=== PATIENT | male | born 1985 | race Caucasian/White ===

== ENCOUNTER 2016-09-17 12:20 | Emergency (ER) | payer MEDICAID ==
[~2016-09-17] VITALS: Ht 185.4 cm; Wt 79.4 kg
[~2016-09-17 12:20] MED LIST: NORCO 325 MG-51 TAB PO; PERCOCET 5/3251 EACH PO
[2016-09-17] MEDS ORDERED: KEFLEX 500MG.500 MG PO (13:07)
--- NOTE | 2016-09-17 13:08 | Urgent Treatment Center Report ---
History of Present Issue Date/Time Seen by Provider 09/17/16 1242 Visit Reason Pt arrived:Walked Presenting Problem:rt ear pressure, large swollen area on dorsal aspect of left hand. notice today. clear drainage noted Location if Accident: Onset of symptoms date/time:/ or onset unknown for:MEDICAL HX UNKNOWN Have you (or family members/close friends) recently traveled outside the [place]? N If Yes, where/when: Have you had exposure to infectious disease within the past month? TB? Other? 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 State that he has a small area in the center of the area that looks like he may have been bitten by something. State that he also is having some pressure in his right ear for several days ALLERGIES Coded Allergies: Sulfa (Sulfonamide Antibiotics) (11/04/15) Home Medications Reported Medications No Known Home Medications History Medical History General CAD? No Angina: No AR: No Hypertension? No Hyperlipidemia? No CHF? No DVT? No PE? No COPD? No Asthma? No Anemia? No GERD? No Gastric ulcers? No GI Bleed? No Hernia? No Thyroid Problems? No Hypothyroidism? No CVA? No Seizures? No Diabetes? No Renal Insuffiency? No UTI? No Stones? No BPH? No GB Disease: No Nephritic Syndrome? No Asplenia? No Hepatitis? No Sickle Cell Disease? No Arthritis? No Migraines? No Cataracts? No Glaucoma? No MRSA? No HIV? No TB? No Anxiety? No Depression? No Cancer? No More? No Immunization HX DT/Tetanus 1-4 Years Ago Surgical Hx Previous Surgery?N Social History Smoking Hx Smoker: Current Every Day Smoker Tobacco: Yes Type Cigarettes Packs/day < 1 Pack Alcohol Alcohol: Yes Review of Systems All Other Systems Reviewed and Negative Skin other Comment round red raised area on top of left hand that is slightly swollen and draining with a small area in the center that looks like a bite Physical Exam Vital Signs Vital Signs Date Time Temp Pulse Resp B/P Pulse O2 O2 Flow FiO2 Ox Delivery Rate 09/17 1229 98.1 75 20 143/100 99 General Appearance normal appearance, WD/WN, no apparent distress Respiratory Status Yes: trachea midline, chest symmetrical, non tender chest. No: respiratory distress. 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 Medical Decision Making LABS/Meds/Orders Pt receiving controlled substance in ED? No Departure Departure Time of Disposition 1248 Disposition DC Home or Self Care(routine) Clinical Impression Primary Impression: Skin infection Condition STABLE Referrals Clayton Pimentel (Family): 3 Days-Call Office if no improvement Patient Instructions DI for Insect Bites and Stings Additional Instructions keep area clean and dry Make sure to wear gloves when handling hay and look for insects Follow up with family doctor if no improvement in symptoms Watch area for further swelling and spreading watch area that was circled and watch for swelling beyond the circled area, streaks, and warmth or fever any signs of furthering infection REturn if needed Follow up with family doctor Discharge Counseling Counseled pt/family regarding diagnosis, medications/RX, home care, follow up needs Prescriptions Current Visit Scripts CEPHALEXIN (Keflex 500MG Capsule) 500 MG PO QID #20 CAP at 1308
[2016-09-17 13:10] VITALS: BP 143/100
--- OUTSIDE RECORDS SUMMARY | 2016-09-17 22:10 | External Medical Summary Rpt ---
Author Author , EVELYNE STUBBS Address Unknown Phone [email or web address] Immunization Name Date Rout CVX Reac Dose Comm Prov Is Faci e tion ent ider Refu lity Give sed n Hep 04-0 8 999 Hist H149 No H149 B, 2-20 oric ped/ al adol Info rmat ion - Sour ce Unsp ecif ied Td 04-0 9 999 Hist H149 No H149 (kade 2-20 oric lt), 01 al Info adso rmat rbed ion - Sour ce Unsp ecif ied Hep 06-1 8 999 Hist H149 No H149 B, 3- oric ped/ 97 al adol Info rmat ion - Sour ce Unsp ecif ied MMR 02-1 3 999 Hist H149 No H149 - oric 97 al Info rmat ion - Sour ce Unsp ecif ied Hep 02-1 8 999 Hist H149 No H149 B, - oric ped/ 97 al adol Info rmat ion - Sour ce Unsp ecif ied
--- OUTSIDE RECORDS SUMMARY | 2016-09-17 22:10 | External Medical Summary Rpt ---
Author Author [employer] Organization [employer] Address Unknown Phone Unavailable Purpose Continuity of Care Document - through 2016
--- OUTSIDE RECORDS SUMMARY | 2016-09-17 22:10 | External Medical Summary Rpt ---
Author Author , RAUL STUBBS Address Unknown Phone .[employer] Purpose Continuity of Care Document - through 2016
--- OUTSIDE RECORDS SUMMARY | 2016-09-17 22:10 | External Medical Summary Rpt ---
Author Author , RAUL STUBBS Address Unknown Phone [email or web address] Purpose Continuity of Care Document - through 2016
--- OUTSIDE RECORDS SUMMARY | 2016-09-17 22:10 | External Medical Summary Rpt ---
Author Author EVELYNE Cavazos, [employer] Address Unknown Phone Unavailable
--- OUTSIDE RECORDS SUMMARY | 2016-09-17 22:10 | External Medical Summary Rpt ---
Author Author , EVELYNE STUBBS Address Unknown Phone [email or web address] Immunization Name Date Rout CVX Reac Dose [...]
== END 2016-09-17 13:11 | disposition home or self-care (01) ==
LOC: UTC 12:20
DX: L02.512 Cutaneous abscess of left hand (principal)

== ENCOUNTER → 2016-10-12 | Outpatient (CLI) | payer MEDICAID ==
[~2016-10-12] MED LIST changes: +KEFLEX 500MG.500 MG PO
--- NOTE | 2016-10-12 10:20 | RADIOLOGY REPORT PS360 ---
ORBIT HISTORY: RULE OUT METAL FOREIGN BODY FOR MRI Patient Age: 31 years: Male Ordering Physician: CATRACHO HIGGINS MD TECHNIQUE: Bang' view patient looking up and looking down COMPARISON :None FINDINGS These plain films show no discrete radiopaque foreign body in either orbit . Minimal artifact on the images changes from one image to another. Patient & Orbits clear for MRI. The maxillary sinuses appear clear as do the frontal sinuses. Mastoid air cells unremarkable. Facial bones intact. IMPRESSION: No evidence of radiopaque foreign body in either orbit. Patient clear for MRI Paranasal sinuses visualized appear clear
--- NOTE | 2016-10-15 08:14 | RADIOLOGY REPORT PS360 ---
[facility] left hand HISTORY: SPIDER BITE WOUND Patient Age: 31 years: Male Ordering Physician: CATRACHO HIGGINS MD TECHNIQUE: Multiplanar multisequence imaging 1.5 the MRI. COMPARISON :3 views left hand 10/03/2016 FINDINGS Superficial edema /mainly subcutaneous edema. Modest layer of soft tissue fluid/.inflammation is seen along the dorsal aspect of the hand ,,.This abnormal edema seems limited to the more superficial & subcutaneous region.- It does not extend significantly into the deep spaces of the hand. & There is no osseous involvement.. This relatively modest layer of fluid signal subcutaneous regionl It spans up to 4 cm transverse 7.5 cm length X 2-2.5 mm maximum AP. This is most evident in focal fluid collection, with mild post contrast enhancement, is seen overlying/flanking the distal head third metacarpal & knuckle/MCP joint region. This enhancement and mild edema spreading into the soft tissues overlying the fourth, and less evident second MCP joint.. Some scant Edema an associated enhancement extending into the proximal third finger dorsally. & possibly some scant fluid extending dorsal soft tissues at the base of the fourth finger as well.. Underlying osseous structures appear intact here as well. The tendons appear intact. IMPRESSION: Inflammatory fluidis seen throughout the superficial dorsal soft tissues hand. This information spans up to 7.5 cm in length x 4 cm transverse.. Mild enhancement is seen in the same region general region but most evident evident overlying and flanking the head of the Third metacarpal, & less evident spreading to overlying the head of fourth & second metacarpal Is specifically noted moderate enhancement most evident in these subcutaneous tissues overlying the third and fourth metatarsal head region... These above features likely reflects the reactive changes from the reported spider bite.. Scant edema may also extend towards the dorsal aspect of proximal third & fourth finger. The inflammation seems limited to the more superficial soft tissues and does not involve the deep hand structures. No Osseous involvement...
== END ==
LOC: RAD 08:23
DX: H05.53 Retained (old) foreign body following penetrating wound of bilateral orbits (principal); T63.301A Toxic effect of unspecified spider venom, accidental (unintentional), initial encounter
CPT/HCPCS: A9576

== ENCOUNTER → 2016-11-29 | Outpatient (CLI) | payer MEDICAID ==
--- NOTE | 2016-11-29 16:43 | RADIOLOGY REPORT PS360 ---
PROCEDURE: 2-D M-mode and color Doppler study INDICATIONS FOR THE TEST: Chest pain+ COPD Heart Murmur Tobacco Smoking+ Palpitations+ Fatigue+ Syncope Edema Hypertension Diabetes Mellitus Rheumatic Fever SOB+ARREDONDO+Obesity Hyperlipidemia Family History HD Additional History PATIENT INFORMATION HEIGHT: 73 WEIGHT: 170 GENDER: Male B/P: 143/103 2-D/M-MODE INTERPRETATION: 2-D MEASUREMENTS OBSERVED VALUES IN CMS Right Ventricular Dimension (RVDd) 2.3 Interventricular Septum (Thickness)(IVsd) 0.9 Left Ventricular Internal Dimensions(LVIDd) 5.1 Left Ventricular Posterior Wall (Thickness)(LVPWd) 1.0 Aortic Root 2.3 Aortic Cusp Separation 2.3 Left Atrial Dimensions (LAD) 3.2 2D 1. Left atrium is normal size, left ventricle is normal size, there is no concentric left ventricular hypertrophy, visually estimated ejection fraction 55% with no obvious regional wall motion abnormality. 2. The right atrium and right ventricle are normal size and contractility. 3. The aortic, mitral and tricuspid valve are structurally normal. 4. The pulmonic valve is poorly visualized. 5. There is no significant pericardial effusion noted. DOPPLER INTERROGATION: Doppler interrogation of the aortic, mitral and tricuspid valvular presence of trace mitral and tricuspid regurgitation, tricuspid and jet velocity insufficient for calculation of the right ventricular systolic pressure, diastolic parameters are within normal range. CONCLUSION: 1. Normal left ventricle size, preserved left ventricular systolic function, visually estimated ejection fraction 55% with no obvious regional wall motion abnormality. Diastolic parameters are within normal range. 2. Trace mitral and tricuspid regurgitation. 3. No significant pericardial effusion noted.
== END ==
LOC: RT 13:38
DX: R06.02 Shortness of breath (principal); R00.0 Tachycardia, unspecified; R53.83 Other fatigue; R63.5 Abnormal weight gain; R94.31 Abnormal electrocardiogram [ECG] [EKG]; G47.33 Obstructive sleep apnea (adult) (pediatric)